=== PATIENT | female | born 1925 | race Caucasian/White ===

== ENCOUNTER 2016-08-11 16:30 | Emergency (ER) | payer MEDICARE, BC ==
[2016-08-11 15:01] LABS: BASOPHILS ABSOLUTE 0.05 10/3/uL (0.0-0.16); EOSINOPHILS 3.5 %; EOSINOPHILS ABSOLUTE 0.17 10/3/uL (0.0-0.53); HEMATOCRIT 37.5 % (36.0-48.0); HEMOGLOBIN 12.6 g/dL (12.0-16.0); LYMPHOCYTES 30.4 %; LYMPHOCYTES ABSOLUTE 1.49 10/3/uL (0.67-4.30); MEAN CORPUS HGB CONC 33.6 g/dL (32.0-36.0); MEAN CORPUSCULAR HEMOGLOB 31.3 pg (26.0-34.0); MEAN CORPUSCULAR VOLUME 93.1 fL (80-100); MEAN PLATELET VOLUME 10.6 fL (9.2-13.0); MONOCYTES 8.2 %; NEUTROPHILS 56.9 %; NEUTROPHILS ABSOLUTE 2.79 10/3/uL (2.02-8.40); PLATELET COUNT 156 10/3/uL (150-400); RBC DISTRIBUTION WIDTH 14.3 % (12.0-16.0); RED CELL COUNT 4.03 10/6/uL (4.0-5.6); WHITE BLOOD CELLS 4.9 10/3/uL (4.5-10.5)
[2016-08-11 15:09] LABS: INTERNATIONAL NORMAL RATI 1.1 UNITS (-); PARTIAL THROMBO TIME 24.3 SEC (22.5-37.2); PROTIME (NOT ORD) 13.9 SEC (12.0-14.5)
[2016-08-11 15:17] LABS: ALBUMIN 3.1 G/DL (3.5-5.0); CALCIUM, SERUM 8.6 MG/DL (8.5-10.4); CHEST PAIN PROFILE TAT 0 Hrs 20 Mins; CHLORIDE, SERUM 113 MMOL/L (96-112); CO2 (CARBON DIOXIDE) 22 MMOL/L (24-34); GFR AFRICAN AMERICAN 46 ML/MIN (>=60); GFR NON AFRICAN AMERICAN 40 ML/MIN (>=60); GLUCOSE, SERUM 75 MG/DL (60-99); POTASSIUM, SERUM 4.3 MMOL/L (3.5-5.3); SGOT(AST) 18 U/L (5-40); SGPT(ALT) 12 U/L (5-65); SODIUM, SERUM 145 MMOL/L (135-148); TOTAL BILIRUBIN 0.5 MG/DL (0-1.2); TOTAL PROTEIN 6.9 G/DL (6.0-8.5); TROPONIN I <0.02 NG/ML (<0.05)
[2016-08-11 15:22] LABS: ALKALINE PHOSPHATASE 96 U/L (45-117); DIRECT BILIRUBIN < 0.1 MG/DL (0.0-0.4); INDIRECT BILIRUBIN(NOT ORDER) 0.4 MG/DL (0.1-0.9)
[2016-08-11 15:23] LABS: BUN (BLOOD UREA NITROGEN) 20 MG/DL (6-23)
[2016-08-11 15:24] LABS: ASCORBIC ACID (UR NOT ORDER) NEG (NEG); BILIRUBIN, URINE NEGATIVE (NEG); ER URINALYSIS TAT 0 Hrs 13 Mins; KETONE, URINE NEGATIVE (NEG); LEUKOCYTE ESTERASE(NOT OR NEG (NEG); NITRITE (URINE) POS (NEG); WBC (NOT ORDERED) (RFLEX) 9 (0-5)
[~2016-08-11 16:30] MED LIST: ASAB PO; CARASPUDL PO; I40 PO; LEVOTHYROXIN88 MCG PO; LIDOVISCUD PO; NAMENDA10 MG PO; PROTONIX PO; VITAMIN D31000 UNIT PO; ZOFRAN4 PO
[2016-09-07] MEDS ORDERED: CELEXA10 PO (18:34)
[2016-09-07] MEDS ORDERED: HALF81 PO (18:34)
[2016-09-07] MEDS ORDERED: CRANBERY450 MG PO (18:34)
[2016-09-07] MEDS ORDERED: CLARIT10 PO (18:35)
[2016-09-07] MEDS ORDERED: LEVOTHYROXIN75 MCG PO (18:35)
[2016-09-07] MEDS ORDERED: NAMENXR28 PO (18:35)
[2016-09-07] MEDS ORDERED: ARICEPT5 PO (18:35)
[2016-09-07] MEDS ORDERED: I40 PO (18:36)
[2016-09-07] MEDS ORDERED: VITAMIN D1000 UNI1 PO (18:36)
[2016-09-07] MEDS ORDERED: MACROBID PO (18:36)
[2016-09-07] MEDS ORDERED: ZOFRAN4 PO (18:37)
[2016-09-10] MEDS ORDERED: MONISTAT 3 V (17:56)
== END 2016-08-11 18:24 | disposition home or self-care (01) ==
LOC: ER 16:30
PROVIDERS: Emergency Medicine
DX: G93.40 Encephalopathy, unspecified (principal); N39.0 Urinary tract infection, site not specified; I12.9 Hypertensive chronic kidney disease with stage 1 through stage 4 chronic kidney disease, or unspecified chronic kidney disease; I50.9 Heart failure, unspecified; K21.9 Gastro-esophageal reflux disease without esophagitis; F03.90 Unspecified dementia, unspecified severity, without behavioral disturbance, psychotic disturbance, mood disturbance, and anxiety; Z88.0 Allergy status to penicillin; Z91.013 Allergy to seafood; Z88.5 Allergy status to narcotic agent; Z88.8 Allergy status to other drugs, medicaments and biological substances; Z79.82 Long term (current) use of aspirin; Z79.899 Other long term (current) drug therapy
CPT/HCPCS: 70450; 80048; 80076; 81001; 82962; 83735; 84484; 85025; 85610; 85730; 93005; 96374; 99285